=== PATIENT | male | born 1970 | race Caucasian/White ===

== ENCOUNTER 2019-11-15 17:49 | Emergency (ER) | payer OTHER ==
--- NOTE | 2019-11-15 17:59 | ED.PDOC ---
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 Was driving from work to hotel when he developed palpations, heart racing. denies dizziness, shortness of breath. Drank some water and opened window which seemed to help. no chest pain. no cough or fever. Was talking to his daughter on the phone in [place] when started. He is stressed he can't see her due to covid. had recent negative covid test. Had similar palpations 5 years ago in [place], but at that point had red bull and coffee. Did drink coffee this morning 12 oz. Does take bp meds but unsure if he took today. no supplements or drug use. Does not have current heart racing symptoms. Allergies/Adverse Reactions: Allergies Penicillins Allergy (Verified 11/15/19 18:05) Home Medications: Ambulatory Orders Amlodipine Besylate 5 mg PO DAILY 11/15/19 Lisinopril [Prinivil] 10 mg PO DAILY 11/15/19 Potassium Chloride [K-Tab] 8 meq PO DAILY #7 tab 11/15/19 Rosuvastatin Calcium 10 mg PO DAILY 11/15/19 Review of Systems - Review of Systems Constitutional: Denies: chills, fever, malaise, weakness EENTM: Denies: blurred vision, tearing, double vision, mouth pain Respiratory: Denies: cough, orthopnea, short of breath, wheezing Cardiology: States: palpitations. Denies: chest pain, edema, syncope Gastrointestinal/Abdominal: Denies: abdominal pain, diarrhea, nausea, vomiting Genitourinary: Denies: frequency, hematuria Musculoskeletal: Denies: back pain, joint pain, muscle pain Skin: Denies: change in color, change in hair/nails Neurological: Denies: headache, numbness, paresthesia, seizure, tingling, tremors, weakness Endocrine: Denies: increased thirst, increased urine, unexplained weight gain, unexplained weight loss Hematologic/Lymphatic: Denies: easy bleeding, easy bruising Past Medical History (General) - Patient Medical History Hx Hypertension: Yes Hx Other PMH: Yes - high cholesterol Hx Other - free text: high cholesterol Other Surgeries:: knee surgery Family Medical History - Family History Mother Living Status: Still Living Hx Family Hypertension: Yes Physical Exam - Physical Exam General Appearance: Alert, Comfortable, No apparent distress Eyes, Ears, Nose, Throat Exam: PERRL/EOMI, normal ENT inspection Neck: non-tender, full range of motion, supple, normal inspection, other - thryoid nontender, normal size Respiratory: chest non-tender, lungs clear, normal breath sounds, no respiratory distress, no accessory muscle use Cardiovascular/Chest: normal peripheral pulses, regular rate, rhythm, no edema, no gallop, no JVD, no murmur Peripheral Pulses: radial,right: 2+, radial,left: 2+, dorsalis pedis,right: 2+, dorsalis pedis,left: 2+ Gastrointestinal/Abdominal: normal bowel sounds, non tender, soft, no organomegaly, no pulsatile mass Rectal Exam: deferred Extremity: normal range of motion, non-tender, normal inspection, no pedal edema, no calf tenderness, normal capillary refill Neurologic: animal husbandman II-XII nml as tested, no motor/sensory deficits, alert, normal mood/affect, oriented x 3 Skin Exam: normal color, warm/dry Comments: patient playing on mobile device. Progress - Progress Progress: Partial ddx: electrolyte abnormality, cad, hyperthyroid, caffeine induced palpations, anxiety. The data reviewed when caring for this patient included: nurse notes, ems records, etc. The history and assessments from nurses notes were reviewed and considered, and the patient's home medication list was also reviewed and considered. CXR, EKG and blood work obtained. IVF bolus given. EKG shows HR 104, sinus tachycardia, with normal intervals. T wave inversion and q wave noted in lead III and avf no prior to compare to. Patient resting comfortably, on mobile device. hr 93 on monitor. CXR shows no acute cardiopulmonary pathology. Blood work grossly unremarkable. Will observe patient for 2 more hours and repeat ekg and troponin. cardiac score 3 11/15/19 18:00 Sodium Chloride 0.9% 1000ML [Ns 1000 ml] 1,000 ml IVS STAT 11/15/19 19:15 EKG STAT 11/15/19 20:00 EKG STAT TROPONIN-I Laboratory Results WBC 5.0 K/mm3 (4.8-10.8) 11/15/19 18:02 RBC 4.77 M/mm3 (4.70-6.10) 11/15/19 18:02 Hgb 14.5 gm/dL (14.0-18.0) 11/15/19 18:02 Hct 41.9 % (42.0-52.0) L 11/15/19 18:02 MCV 87.9 fl (80.0-94.0) 11/15/19 18:02 MCH 30.4 pg (27.0-31.0) 11/15/19 18:02 MCHC 34.5 g/dL (33.0-37.0) 11/15/19 18:02 RDW 15.0 % (11.5-14.5) H 11/15/19 18:02 Plt Count 264 K/mm3 (130-400) 11/15/19 18:02 MPV 8.5 fl (7.40-10.4) 11/15/19 18:02 Absolute Neuts (auto) 2.20 K/uL (1.8-6.8) 11/15/19 18:02 Absolute Lymphs (auto) 2.10 K/uL (1.0-3.4) 11/15/19 18:02 Absolute Monos (auto) 0.50 K/uL (0.2-0.8) 11/15/19 18:02 Absolute Eos (auto) 0.10 K/uL (0.0-0.4) 11/15/19 18:02 Absolute Basos (auto) 0.00 K/uL (0.0-0.1) 11/15/19 18:02 Neutrophils % 43.2 % (42.0-78.0) 11/15/19 18:02 Lymphocytes % 42.5 % (20.0-50.0) 11/15/19 18:02 Monocytes % 10.9 % (2.0-9.0) H 11/15/19 18:02 Eosinophils % 2.7 % (1.0-5.0) 11/15/19 18:02 Basophils % 0.7 % (0.0-2.0) 11/15/19 18:02 Sodium 141 mmol/L (135-145) 11/15/19 18:02 Potassium 3.3 mmol/L (3.6-5.0) L 11/15/19 18:02 Chloride 104 mmol/L (101-111) 11/15/19 18:02 Carbon Dioxide 25 mmol/L (21-31) 11/15/19 18:02 Anion Gap 15.3 (12-18) 11/15/19 18:02 BUN 16 mg/dL (7-18) 11/15/19 18:02 Creatinine 1.07 mg/dL (0.6-1.3) 11/15/19 18:02 BUN/Creatinine Ratio 15.0 (10-20) 11/15/19 18:02 Random Glucose 101 mg/dL (70-105) 11/15/19 18:02 Serum Osmolality 282.6 mOsm/L (275-295) 11/15/19 18:02 Calcium 9.1 mg/dL (8.4-10.2) 11/15/19 18:02 Magnesium 2.2 mg/dL (1.8-2.5) 11/15/19 18:02 Total Bilirubin 1.2 mg/dL (0.2-1.0) H 11/15/19 18:02 AST 29 IU/L (10-42) 11/15/19 18:02 ALT 35 IU/L (10-60) 11/15/19 18:02 Alkaline Phosphatase 87 IU/L (42-121) 11/15/19 18:02 Troponin I < 0.02 ng/mL (0.01-0.05) 11/15/19 18:02 Serum Total Protein 8.3 gm/dL (6.4-8.2) H 11/15/19 18:02 Albumin 4.9 g/dl (3.2-5.5) 11/15/19 18:02 Globulin 3.4 gm/dL (2.3-3.5) 11/15/19 18:02 Albumin/Globulin Ratio 1.4 (1.1-1.9) 11/15/19 18:02 TSH 2.42 uIU/mL (0.34-5.60) 11/15/19 18:02 11/15/19 20:26 repeat EKG shows HR 85, NSR, no evidence of acute ischemia. T wave inversion reduced after giving potassium replacement. 11/15/19 20:36 My assessment and the results of testing completed here in the ED were discussed with the patient. All questions were answered, andhe express understanding of my assessment and the plan. He have been instructed to return if their symptoms worsen, and have been asked to follow up with their primary care physician to recheck today's presenting complaint. Strict return precautions given. vss, patient discharged home in stable condition. Annika Gee DO #[id number] Departure - Departure Clinical Impression: Tachycardia, Hypokalemia ICD-10 Supporting Text: palpations Time of Disposition: 20:28 Disposition: Discharge to Home or Self Care Departure Forms: ED Discharge - Pt. Copy, Patient Portal Self Enrollment Instructions: DI for Chest Pain, High Blood Pressure in Adults, Hypokalemia, High Potassium Diet, Sinus Tachycardia (DC) Prescriptions: Potassium Chloride [K-Tab] 8 meq PO DAILY #7 tab Home Medications: Ambulatory Orders Amlodipine Besylate 5 mg PO DAILY 11/15/19 Lisinopril [Prinivil] 10 mg PO DAILY 11/15/19 Potassium Chloride [K-Tab] 8 meq PO DAILY #7 tab 11/15/19 Rosuvastatin Calcium 10 mg PO DAILY 11/15/19 Additional Instructions: recommend follow up with your doctor in 1-3 days, recommend repeat blood work (potassium) levels.
[2019-11-15] MEDS ORDERED: SODIUM CHLORIDE 0.9% 1000ML 1,000 ML IVS PRN (18:00)
--- NOTE | 2019-11-15 18:45 | RAD ---
EXAM DESCRIPTION: Chest,2 Views CLINICAL HISTORY:48 years Male, palpations Comparison: None FINDINGS: No focal lung consolidation. No pleural effusion. No pneumothorax. Cardiomediastinal silhouette is within normal limits. No acute osseous abnormality. IMPRESSION: No acute cardiopulmonary disease. Electronically signed by: Lenny Harman DO 11/15/2019 6:44 PM CDT
[2019-11-15] MEDS ORDERED: POTASSIUM CHLORIDE ELIXIR 20 MEQ/15 ML UD PO ONE (20:08)
[2019-11-15 21:14] VITALS: BP 141/94; TEMP 97.8; O2SAT 97
== END 2019-11-15 20:50 | disposition home or self-care (01) ==
LOC: ER 17:49
DX: R00.0 Tachycardia, unspecified (principal); E87.6 Hypokalemia; I10 Essential (primary) hypertension; E78.00 Pure hypercholesterolemia, unspecified; Z79.899 Other long term (current) drug therapy; Z88.0 Allergy status to penicillin
CPT/HCPCS: 36415; 71046; 80053; 83735; 84443; 84484; 85025; 93005; J7030

== ENCOUNTER 2019-11-24 21:14 | Emergency (ER) | payer OTHER ==
[2019-11-24 21:24] VITALS: TEMP 98
--- NOTE | 2019-11-24 22:10 | ED.PDOC ---
History of Present Illness - General Chief Complaint: Blood Pressure Problem Stated Complaint: felt dizzy this am, high B/P Time Seen by Provider: 11/24/19 22:07 Source: patient, RN notes reviewed, Vital Signs reviewed Exam Limitations: no limitations - History of Present Illness Initial Comments: Patient is a 48-year-old male who presents with complaints of being out of his medicine for 2 days. He states that his blood pressure is been elevated since he ran out of his medicine. He was seen here approximately 10 days ago and provided a weeks worth of blood pressure medicine. He was newly diagnosed with hypertension at that time. Patient is traveling has not been able to see a PCP. Patient denies any blurry vision, headaches, nausea, vomiting, shortness of breath, chest pain. Timing/Duration: other - 2 days Severity: mild Improving Factors: medication - Lisinopril 10 mg Worsening Factors: nothing Associated Symptoms: denies symptoms Allergies/Adverse Reactions: Allergies Penicillins Allergy (Verified 11/24/19 21:23) Home Medications: Ambulatory Orders Lisinopril [Prinivil] 10 mg PO DAILY 11/15/19 Potassium Chloride [K-Tab] 8 meq PO DAILY #7 tab 11/15/19 Rosuvastatin Calcium 10 mg PO DAILY 11/15/19 Lisinopril 10 mg PO DAILY #30 tab 11/24/19 Potassium Chloride [K-Tab] 8 meq PO DAILY #30 tab 11/24/19 Rosuvastatin Calcium 10 mg PO DAILY #30 tab 11/24/19 Review of Systems - Review of Systems Constitutional: States: no symptoms reported, see HPI. Denies: chills, fever, malaise, weakness EENTM: States: no symptoms reported. Denies: eye pain, blurred vision, double vision Respiratory: States: no symptoms reported. Denies: cough, short of breath, stridor, wheezing Cardiology: States: no symptoms reported. Denies: chest pain, palpitations, syncope Gastrointestinal/Abdominal: States: no symptoms reported. Denies: abdominal pain, diarrhea, nausea, vomiting Genitourinary: States: no symptoms reported. Denies: dysuria, frequency Musculoskeletal: States: no symptoms reported. Denies: back pain, neck pain Skin: States: no symptoms reported. Denies: change in color, rash Neurological: States: no symptoms reported. Denies: tingling, tremors, weakness Endocrine: States: no symptoms reported. Denies: increased hunger, increased thirst, increased urine Hematologic/Lymphatic: States: no symptoms reported. Denies: blood clots, easy bleeding All other Systems: No Change from Baseline Past Medical History (General) - Patient Medical History Hx Seizures: No Hx Stroke: No Hx Dementia: No Hx Asthma: No Hx of COPD: No Hx Cardiac Disorders: No Hx Congestive Heart Failure: No Hx Pacemaker: No Hx Hypertension: Yes Hx Thyroid Disease: No Hx Diabetes: No Hx Gastroesophageal Reflux: No Hx Renal Disease: No Hx Cancer: No Hx of HIV: No Hx Hepatitis C: No Hx MRSA: No - Vaccination History Hx Tetanus, Diphtheria Vaccination: Yes - 2015 Hx Influenza Vaccination: No - Social History Hx Tobacco Use: No Hx Alcohol Use: Yes - social Hx Substance Use: No Hx Substance Use Treatment: No Hx Depression: No - Female History Patient : No Family Medical History - Family History Mother Living Status: Still Living Hx Family Hypertension: Yes Physical Exam - Physical Exam General Appearance: Alert, Comfortable, Well Developed, Well Groomed, Well Hydrated, Well Nourished Eye Exam: bilateral normal Ears, Nose, Throat: hearing grossly normal, normal ENT inspection, normal pharynx Neck: non-tender, full range of motion, supple, normal inspection Respiratory: chest non-tender, lungs clear, normal breath sounds, no respiratory distress, no accessory muscle use Cardiovascular/Chest: normal peripheral pulses, regular rate, rhythm, no edema, no gallop, no JVD, no murmur Peripheral Pulses: radial,right: 2+, radial,left: 2+ Gastrointestinal/Abdominal: normal bowel sounds, non tender, soft, no organomegaly Back Exam: normal inspection, no CVA tenderness, no vertebral tenderness Extremity: normal range of motion, non-tender, normal inspection Skin Exam: normal color, warm/dry Lymphatic: no adenopathy Progress - Progress Progress: Differential diagnosis: Hypertension, medication noncompliance, medication refill, acute NV among others. 11/24/19 22:19 Patient resting quietly. Blood pressure has improved. Plan on refill of medications for 30 days so the patient can finish his travels and get back to [place] to his PCP. I discussed this plan of care with the patient and he voices understanding and agreement with the plan of care. Jono Marie M.D. #[id number] - Results/Orders Results/Orders: 11/24/19 21:26 EKG Assessment ONCE 11/24/19 21:30 EKG STAT Laboratory Results - last 24 hr 11/24/19 11/24/19 21:26 21:26 WBC 6.5 RBC 4.95 Hgb 15.4 Hct 43.8 MCV 88.4 MCH 31.1 H MCHC 35.2 RDW 14.8 H Plt Count 281 MPV 8.7 Absolute Neuts (auto) 2.90 Absolute Lymphs (auto) 2.70 Absolute Monos (auto) 0.60 Absolute Eos (auto) 0.20 Absolute Basos (auto) 0.10 Neutrophils % 44.4 Lymphocytes % 42.0 Monocytes % 9.9 H Eosinophils % 2.4 Basophils % 1.3 Sodium 143 Potassium 3.6 Chloride 105 Carbon Dioxide 27 Anion Gap 14.6 BUN 14 Creatinine 0.97 BUN/Creatinine Ratio 14.4 Random Glucose 126 H Serum Osmolality 287.0 Calcium 9.3 Total Bilirubin 1.1 H AST 28 ALT 36 Alkaline Phosphatase 98 Creatine Kinase 156 CK-MB (CK-2) 1.3 CK-MB (CK-2) % Not Reportable Troponin I < 0.02 Serum Total Protein 8.6 H Albumin 5.1 Globulin 3.5 Albumin/Globulin Ratio 1.5 Vital Signs 11/24/19 21:18 Temperature 98.0 F Pulse Rate [ 108 H monitor] Respiratory 20 Rate Blood Pressure 180/110 [Left Arm] O2 Sat by Pulse 99 Oximetry Repeat blood pressure of 138/100. Departure - Departure Clinical Impression: Non compliance w medication regimen, Medication refill Time of Disposition: 22:21 Disposition: Discharge to Home or Self Care Condition: Good Departure Forms: ED Discharge - Pt. Copy, Patient Portal Self Enrollment Instructions: DI for High Blood Pressure, High Blood Pressure in Adults Diet: resume usual diet Activity: increase activity as tolerated Prescriptions: Potassium Chloride [K-Tab] 8 meq PO DAILY #30 tab Lisinopril 10 mg PO DAILY #30 tab Rosuvastatin Calcium 10 mg PO DAILY #30 tab Home Medications: Ambulatory Orders Lisinopril [Prinivil] 10 mg PO DAILY 11/15/19 Potassium Chloride [K-Tab] 8 meq PO DAILY #7 tab 11/15/19 Rosuvastatin Calcium 10 mg PO DAILY 11/15/19 Lisinopril 10 mg PO DAILY #30 tab 11/24/19 Potassium Chloride [K-Tab] 8 meq PO DAILY #30 tab 11/24/19 Rosuvastatin Calcium 10 mg PO DAILY #30 tab 11/24/19 Comments: Pt to follow up with his PCP when he returns to [place] in 2 weeks.
[2019-11-24 22:25] VITALS: BP 138/99; O2SAT 93
== END 2019-11-24 22:31 | disposition home or self-care (01) ==
LOC: ER 21:14
DX: I10 Essential (primary) hypertension (principal); Z91.14 Patient's other noncompliance with medication regimen; Z79.899 Other long term (current) drug therapy; Z76.0 Encounter for issue of repeat prescription; Z88.0 Allergy status to penicillin